=== PATIENT | female | born 1975 | race Caucasian/White ===

== ENCOUNTER 2016-06-04 16:06 | Emergency (ER) | payer OTHER ==
[2016-06-04 16:15] VITALS: BP 149/92; PULSE 93; TEMP 97.3; BMI 43.0
--- NOTE | 2016-06-04 16:17 | PDOC ---
History of Present Illness - General History Source: Patient Exam Limitations: No Limitations - History of Present Illness Initial Comments: 06/04/16 17:08 The patient is a 40 year old female, well known to this ER, with a significant past medical history of asthma, GERD, anxiety, depression, and chronic pain ( narcotic dependent), who presents to the emergency department s/p mechanical pain, occurring today. She reports her legs gave out falling on concrete. She reports falling on her right wrist. Patient reports as a result of the fall sustaining injuries to her right wrist and right shoulder. She reports falling a second time on her carpet resulting in lower back pain. She reports having numbness and tingling in LE. She also notes having shooting pains down her legs. She ranks her pain a 8/10 in pain intensity.She denies fever, chills, headache and dizziness. She denies nausea, vomit, diarrhea and constipation. Allergies: As per Nursing Notes. Social history: Narcotic dependency. Former smoker. <Marcio Spears - Last Filed: 06/04/16 19:04> <Manuel Santamaria - Last Filed: 06/04/16 19:09> - General Chief Complaint: Injury Stated Complaint: RT WRIST,ARM, LOWER BACK FALL Time Seen by Provider: 06/04/16 16:16 Past History <Marcio Spears - Last Filed: 06/04/16 19:04> - Past Medical History Anemia: No Asthma: Yes Cancer: No Cardiac Disorders: No CVA: No COPD: No CHF: No Dementia: No Diabetes: No GI Disorders: Yes (GERD) Disorders: No HTN: No Hypercholesterolemia: No Liver Disease: No Psychiatric Problems: Yes (ANXIETY, DEPRESSION) Suicide Attempt (Hx): No Seizures: No Thyroid Disease: No - Surgical History Abdominal Surgery: No Appendectomy: No Cardiac Surgery: No Cholecystectomy: No Lung Surgery: Yes (biopsy, negative pathology) Neurologic Surgery: No Orthopedic Surgery: Yes (spinal surgery x 9) - Immunization History Td Vaccination: Yes Immunization Up to Date: Yes - Psycho/Social/Smoking Cessation Hx Anxiety: Yes Suicidal Ideation: No Smoking Status: No Smoking History: Former smoker Have you smoked in the past 12 months: No Number of Cigarettes Smoked Daily: 0 If you are a former smoker, when did you quit?: > 10 YEARS Information on smoking cessation initiated: No Hx Alcohol Use: No Drug/Substance Use Hx: No Substance Use Type: None, Prescribed Hx Substance Use Treatment: No (benzodiazpene, narcotic) <Manuel Santamaria - Last Filed: 06/04/16 19:09> - Past Medical History Allergies/Adverse Reactions: Allergies Allergy/AdvReac Type Severity Reaction Status Date / Time morphine Allergy Severe Hives Verified 06/04/16 16:08 aspirin Allergy Unknown Hives Verified 06/04/16 16:08 ketorolac tromethamine Allergy Unknown Difficulty Verified 06/04/16 16:08 [From Toradol] Breathing NSAIDS (Non-Steroidal Allergy Hives Verified 06/04/16 16:08 Anti-Inflamma haloperidol [From Haldol] AdvReac Intermediate Verified 06/04/16 16:08 haloperidol lactate AdvReac Intermediate Verified 06/04/16 16:08 [From Haldol] STRAWBERRIES Allergy Mild Hives Uncoded 06/04/16 16:08 Home Medications: Ambulatory Orders Alprazolam [Xanax] 1 mg PO TID 02/26/14 Zolpidem Tartrate [Ambien] 10 mg PO HS 02/26/14 Carisoprodol [Soma -] 350 mg PO TID #21 tablet 09/05/14 Hydromorphone [Dilaudid -] 4 mg PO Q4H #12 tablet 07/14/15 Methadone HCl 20 mg PO BID tablet 11/08/15 Review of Systems - Review of Systems Able to Perform ROS?: Yes Constitutional: No: Symptoms Reported HEENTM: No: Symptoms Reported Respiratory: No: Symptoms reported Cardiac (ROS): No: Symptoms Reported ABD/GI: No: Symptoms Reported : No: Symptoms Reported Musculoskeletal: Yes: Back Pain (lower.), Joint Pain (right wirst.) Integumentary: No: Symptoms Reported Neurological: No: Symptoms reported All Other Systems: Reviewed and Negative <Marcio Spears - Last Filed: 06/04/16 19:04> *Physical Exam - Vital Signs Last Vital Signs Temp Pulse Resp BP Pulse Ox 97.3 F L 93 H 19 149/92 99 06/04/16 16:08 06/04/16 16:08 06/04/16 16:08 06/04/16 16:08 06/04/16 16:08 - Physical Exam General Appearance: Yes: Appropriately Dressed HEENT: positive: EOMI, FREDIS, Normal ENT Inspection, Normal Voice, TMs Normal, Pharynx Normal Neck: positive: Supple Respiratory/Chest: positive: Lungs Clear, Normal Breath Sounds Cardiovascular: positive: Regular Rhythm, Regular Rate Gastrointestinal/Abdominal: positive: Normal Bowel Sounds, Flat, Soft. 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 She reports falling on concrete on her right wrist and then falling again on her buttock. Denies head trauma or LOC. I will check x-rays to check for fractures in her wrist. <Marcio Spears - Last Filed: 06/04/16 19:04> *DC/Admit/Observation/Transfer - Attestations Scribe Attestion: 06/04/16 16:35 Documentation prepared by Marcio Spears, acting as medical assistant instructor for Manuel Santamaria MD. <Marcio Spears - Last Filed: 06/04/16 19:04> - Discharge Dispostion Admit: No <Manuel Santamaria - Last Filed: 06/04/16 19:09> Diagnosis at time of Disposition: Contusion, Exacerbation of chronic back pain Contusion of right shoulder Qualifiers: Encounter type: initial encounter Qualified Code(s): S40.011A - Contusion of right shoulder, initial encounter - Discharge Dispostion Disposition: HOME Condition at time of disposition: Improved - Patient Instructions Printed Discharge Instructions: DI for Rib Contusion, DI for Contusion
[2016-06-04] MEDS ORDERED: HYDROmorphone HCL CARPU-JECT 2 MG/1 ML DISP.SYRIN IM ONE (17:10)
[2016-06-04] MEDS ORDERED: HYDROmorphone HCL CARPU-JECT 2 MG/1 ML DISP.SYRIN ONE ×2 (17:12→18:56)
[2016-06-04] MEDS ORDERED: HYDROmorphone HCL CARPU-JECT 2 MG/1 ML DISP.SYRIN IVPUSH ONE (19:01)
[2016-06-04] MEDS ORDERED: CYCLOBENZAPRINE HCL 10 MG TABLET (FP) PO ONE (19:04)
[2016-06-04] MEDS ORDERED: CYCLOBENZAPRINE HCL 10 MG TABLET (FP) ONE (19:05)
== END 2016-06-04 19:17 | disposition home or self-care (01) ==
LOC: FER 16:06
PROC: 3E033NZ Introduction of Analgesics, Hypnotics, Sedatives into Peripheral Vein, Percutaneous Approach (ICD-10-PCS; principal; 2016-06-04)
PROC: 3E023NZ Introduction of Analgesics, Hypnotics, Sedatives into Muscle, Percutaneous Approach (ICD-10-PCS; 2016-06-04)
DX: S40.011A Contusion of right shoulder, initial encounter (principal); W18.39XA Other fall on same level, initial encounter; Y93.89 Activity, other specified; Y92.9 Unspecified place or not applicable; J45.909 Unspecified asthma, uncomplicated; K21.9 Gastro-esophageal reflux disease without esophagitis; F41.8 Other specified anxiety disorders; Z87.891 Personal history of nicotine dependence
CPT/HCPCS: 71101-TC-RT; 73030-TC-RT; 73090-TC-RT; 99284-25

== ENCOUNTER 2016-06-25 23:55 | Observation (INO) | payer OTHER ==
--- NOTE | 2016-06-26 00:02 | PDOC ---
History of Present Illness - General Chief Complaint: Chronic pain Stated Complaint: BACK PAIN/SPASMS Time Seen by Provider: 06/26/16 00:01 History Source: Patient Exam Limitations: No Limitations - History of Present Illness Initial Comments: 06/26/16 00:23 This is a morbidly obese 40-year-old female was long history of the chronic back pain and low back pain problems. Patient has multiple visits to the ER for her legs giving out and falls that she says is secondary to the pain. Patient is on multiple narcotic pain medications and is dependent upon her narcotic pain medications. Patient takes Dilaudid and methadone. Patient took her methadone and Dilaudid as prescribed today. Patient said that this afternoon she had several episodes where her legs gave out and the last time she was unable to get up off the floor and her father who she lives with had to help her get off the floor and put her in a chair and brought her in to the ER in the back of his car. In addition to the leg weakness patient is also complaining of numbness and some loss of urinary continence. Patient is able to stand and bear weight and not to get in and out of the car. Patient on arrival in the emergency room was sobbing hysterically and described her pain as a 10 out of 10. Patient is also complaining of some numbness and tingling of her extremities however this is a chronic complaint for her that dates back on review of her chart several years. Patient said she has a cyst in her back that is being followed by MRI and that her last MRI was 3 months ago and she was told that it was okay. Patient last CT of her back was approximately 6 months ago that was normal. Patient also has a moderate anxiety and emotional issues that are chronic and ongoing. 'PAST MEDICAL HISTORY: no significant history PAST SURGICAL HISTORY: no significant history FAMILY HISTORY: no pertinant history SOCIAL HISTORY: Pt lives with family and is employed. MEDICATIONS: reviewed ALLERGIES: As per nursing notes Review of Systems General: No fevers or chills, no weakness, no weight loss HEENT: No change in vision. No sore throat,. No ear pain CardioVascular: No chest pain or shortness of breath Respiratory:No cough, or wheezing. Gastrointestinal: no nausea, vomitting, diarrhea or constipation, No rectal bleeding Genitourinary: No dysuria, hematuria, or frequency Musculoskeletal: Chronic low back pain Neurologic: No headache, vertigo, dizziness or loss of consciousness Psychiatric: nor depression Skin: No rashes or easy bruising Endocrine: no increased thirst or abnormal weight change Allergic: no skin or latex allergy All other systems reviewed and normal GENERAL: The patient is awake, alert, and fully oriented, in no acute distress. HEAD: Normal with no signs of trauma. EYES: Pupils equal, round and reactive to light, extraocular movements intact, sclera anicteric, conjunctiva clear. EXTREMITIES: Normal range of motion, no edema. NEUROLOGICAL: Normal speech, gait not tested secondary to pain. Patient reports decreased sensation to lower extremities bilateral. Patient has weakness on testing the weakness is not reliable and when patient is distracted in her lower extremities do appear to have more strength than when she is focused on the exam. Patient has not had any urinary incontinence while here in the emergency room. PSYCH: Intermittent episodes of crying. SKIN: Warm, Dry, normal turgor, no rashes or lesions noted. 06/26/16 01:58 CT scan shows fusion of L4-S1 with no acute bony pathology. However it is recommended that to evaluate the disks the canal and nerve root disease for postoperative changes such as scarring that they will be better assessed with MRI. Patient will be admitted to a observation bed for her leg weakness and will get a MRI in the morning to evaluate further the possible cause of her weakness. Past History - Past Medical History Allergies/Adverse Reactions: Allergies Allergy/AdvReac Type Severity Reaction Status Date / Time morphine Allergy Severe Hives Verified 06/04/16 16:08 aspirin Allergy Unknown Hives Verified 06/04/16 16:08 ketorolac tromethamine Allergy Unknown Difficulty Verified 06/04/16 16:08 [From Toradol] Breathing NSAIDS (Non-Steroidal Allergy Hives Verified 06/04/16 16:08 Anti-Inflamma haloperidol [From Haldol] AdvReac Intermediate Verified 06/04/16 16:08 haloperidol lactate AdvReac Intermediate Verified 06/04/16 16:08 [From Haldol] STRAWBERRIES Allergy Mild Hives Uncoded 06/04/16 16:08 aspirin Allergy Unknown Uncoded 01/08/12 16:42 ketorolac tromethamine Allergy Unknown Uncoded 01/08/12 16:42 Home Medications: Ambulatory Orders Alprazolam [Xanax] 1 mg PO TID 02/26/14 Zolpidem Tartrate [Ambien] 10 mg PO HS 02/26/14 Carisoprodol [Soma -] 350 mg PO TID #21 tablet 09/05/14 Hydromorphone [Dilaudid -] 4 mg PO Q4H #12 tablet 07/14/15 Methadone HCl 20 mg PO BID tablet 11/08/15 Anemia: No Asthma: Yes Cancer: No Cardiac Disorders: No CVA: No COPD: No CHF: No Dementia: No Diabetes: No GI Disorders: Yes (GERD) Disorders: No HTN: No Hypercholesterolemia: No Liver Disease: No Psychiatric Problems: Yes (ANXIETY, DEPRESSION) Suicide Attempt (Hx): No Seizures: No Thyroid Disease: No - Surgical History Abdominal Surgery: No Appendectomy: No Cardiac Surgery: No Cholecystectomy: No Lung Surgery: Yes (biopsy, negative pathology) Neurologic Surgery: No Orthopedic Surgery: Yes (spinal surgery x 9) - Immunization History Td Vaccination: Yes Immunization Up to Date: Yes - Psycho/Social/Smoking Cessation Hx Anxiety: Yes Suicidal Ideation: No Smoking Status: No Smoking History: Former smoker Have you smoked in the past 12 months: No Number of Cigarettes Smoked Daily: 0 If you are a former smoker, when did you quit?: > 10 YEARS Hx Alcohol Use: No Drug/Substance Use Hx: No Substance Use Type: None, Prescribed Hx Substance Use Treatment: No (benzodiazpene, narcotic) *DC/Admit/Observation/Transfer Diagnosis at time of Disposition: Weakness of both lower extremities Lower back pain Qualifiers: Chronicity: chronic Back pain laterality: bilateral Sciatica presence: with sciatica Sciatica laterality: sciatica laterality unspecified Qualified Code(s) : M54.40 - Lumbago with sciatica, unspecified side; G89.29 - Other chronic pain Fall at home Qualifiers: Encounter type: initial encounter Qualified Code(s): W19.XXXA - Unspecified fall, initial encounter; Y92.099 - Unspecified place in other non-institutional residence as the place of occurrence of the external cause Opiate addiction Qualifiers: Substance use status: uncomplicated Qualified Code(s): F11.20 - Opioid dependence, uncomplicated - Discharge Dispostion Condition at time of disposition: Stable Admit: Yes
[2016-06-26] MEDS ORDERED: ACETAMINOPHEN 1000 MG/100 ML VIAL (NON FORMULARY) IVPB ONE (00:17)
[2016-06-26] MEDS ORDERED: methylPREDNISolone NA SUCC 125 MG/2 ML VIAL IVPB ONE (00:18)
[2016-06-26] MEDS ORDERED: methylPREDNISolone NA SUCC 125 MG/2 ML VIAL ONE (00:31)
[2016-06-26] MEDS ORDERED: ACETAMINOPHEN INJECTION 100 ML IVPB ONE (00:32)
[2016-06-26] MEDS ORDERED: HYDROmorphone HCL CARPU-JECT 1 MG/1 ML DISP.SYRIN IM ONE ×2 (00:47→03:09)
[2016-06-26] MEDS ORDERED: HYDROmorphone HCL CARPU-JECT 2 MG/1 ML DISP.SYRIN ONE ×2 (00:48→03:09)
[2016-06-26] MEDS ORDERED: ALPRAZolam 0.25 MG TABLET PO PRN (03:01)
[2016-06-26] MEDS ORDERED: DULoxetine HCL 30 MG CAPSULE.DR (FP) PO ONE (03:01)
[2016-06-26] MEDS ORDERED: PANTOPRAZOLE 40 MG TABLET (FP) PO ONE (03:01)
[2016-06-26] MEDS ORDERED: ALBUTEROL SO4 0.083% IH SOL 2.5 MG/3 ML VIAL.NEB. NEB PRN (03:01)
[2016-06-26] MEDS ORDERED: ACETAMINOPHEN 325 MG TABLET (FP) PO PRN (04:59)
[2016-06-26] MEDS ORDERED: METHADONE HCL 10 MG TABLET PO ONE (05:02)
[2016-06-26 05:49] VITALS: BP 139/81; PULSE 95; TEMP 98.9; BMI 44.6
--- NOTE | 2016-06-26 07:17 | HP ---
CHIEF COMPLAINT: Back pain and lower extremity weakness PCP: Dr Monzon Pain Management: Dr Garcia HISTORY OF PRESENT ILLNESS: Patient is a 40 y/o obese female with a past history of chronic lower back pain, GERD, anxiety and depression. She reports 10 back surgeries in the past ( cervical disc fusions, lumbar disc fusions and lumbar fusion). patient reports taking multiple narcotic pain medication (methadone, Dilaudid) for her chronic back pain. She reports taking her usual dosage of methadone and Dilaudid today. She reports ambulating independently at home and felt as if her legs were giving out on her and fell to the floor. She denies striking her head she can remember the full incident in detail. Patient reports her father assisted her to a chair. She reports ongoing weakness to the lower extremities , with urinary incontinence. Patient denies any saddle anesthesia. patient reports severe lower back pain radiating to bilateral lower extremities, she reports her pain is a stabbing pain of 10/10. ER course was notable for: (1) ct of lumbar spine no acute bony abnormalities no evidence of compression deformities and spondylolitshesis, no interval change since 03/04/2016 (2) dilaudid 6mg Im given for pain, with no relief Recent Travel: none Social History: resides at home with parents Smoking: none Alcohol: none Drugs: history of polysubstance abuse Family History: Allergies morphine Allergy (Severe, Verified 06/04/16 16:08) Hives aspirin Allergy (Unknown, Verified 06/04/16 16:08) Hives ketorolac tromethamine [From Toradol] Allergy (Unknown, Verified 06/04/16 16:08) Difficulty Breathing NSAIDS (Non-Steroidal Anti-Inflamma Allergy (Verified 06/04/16 16:08) Hives haloperidol [From Haldol] Adverse Reaction (Intermediate, Verified 06/04/16 16: 08) lock jaw haloperidol lactate [From Haldol] Adverse Reaction (Intermediate, Verified 06/04 16:08) lock jaw STRAWBERRIES Allergy (Mild, Uncoded 06/04/16 16:08) Hives STATES GETS HIVES aspirin Allergy (Unknown, Uncoded 01/08/12 16:42) ketorolac tromethamine Allergy (Unknown, Uncoded 01/08/12 16:42) HOME MEDICATIONS: Home Medications Medication Instructions Recorded Alprazolam [Xanax] 1 mg PO TID 02/26/14 Zolpidem Tartrate [Ambien] 10 mg PO HS 02/26/14 Carisoprodol [Soma -] 350 mg PO TID #21 tablet 09/05/14 Hydromorphone [Dilaudid -] 4 mg PO Q4H #12 tablet 07/14/15 Methadone HCl 20 mg PO BID tablet 11/08/15 Gabapentin [Neurontin] 300 mg PO TID 06/26/16 REVIEW OF SYSTEMS CONSTITUTIONAL: Absent: fever, chills, diaphoresis, generalized weakness, malaise, loss of appetite, weight change HEENT: Absent: rhinorrhea, nasal congestion, throat pain, throat swelling, difficulty swallowing, mouth swelling, ear pain, eye pain, visual changes CARDIOVASCULAR: Absent: chest pain, syncope, palpitations, irregular heart rate, lightheadedness , peripheral edema RESPIRATORY: Absent: cough, shortness of breath, dyspnea with exertion, orthopnea, wheezing, stridor, hemoptysis GASTROINTESTINAL: Absent: abdominal pain, abdominal distension, nausea, vomiting, diarrhea, constipation, melena, hematochezia GENITOURINARY: Absent: dysuria, frequency, urgency, hesitancy, hematuria, flank pain, genital pain MUSCULOSKELETAL: Present: lower back pain, paresthesia to the lower extremeties Absent: myalgia, arthralgia, joint swelling, back pain, neck pain SKIN: Absent: rash, itching, pallor HEMATOLOGIC/IMMUNOLOGIC: Absent: easy bleeding, easy bruising, lymphadenopathy, frequent infections ENDOCRINE: Absent: unexplained weight gain, unexplained weight loss, heat intolerance, cold intolerance NEUROLOGIC: Absent: headache, focal weakness or paresthesias, dizziness, unsteady gait, seizure, mental status changes, bladder or bowel incontinence PSYCHIATRIC: Absent: anxiety, depression, suicidal or homicidal ideation, hallucinations. PHYSICAL EXAMINATION Vital Signs - 24 hr 06/26/16 06/26/16 05:15 05:21 Temperature 99.0 F 98.9 F Pulse Rate 83 95 H Respiratory 20 18 Rate Blood Pressure 144/78 139/81 O2 Sat by Pulse 97 Oximetry (%) GENERAL: Awake, alert, and fully oriented, crying HEAD: Normal with no signs of trauma. EYES: Pupils equal, round and reactive to light, extraocular movements intact, sclera anicteric, conjunctiva clear. No lid lag. EARS, NOSE, THROAT: Ears normal, nares patent, oropharynx clear without exudates. Moist mucous membranes. NECK: Normal range of motion, supple without lymphadenopathy, JVD, or masses. LUNGS: Breath sounds equal, clear to auscultation bilaterally. No wheezes, and no crackles. No accessory muscle use. HEART: Regular rate and rhythm, normal S1 and S2 without murmur, rub or gallop. ABDOMEN: Soft, nontender, not distended, normoactive bowel sounds, no guarding, no rebound, no masses. No hepatomegaly or splenomegaly. MUSCULOSKELETAL: Normal range of motion at all joints. No bony deformities or tenderness. No CVA tenderness. paraspinal tenderness noted L4 and L5 with muscle spasm, positive SLR 45 and at 90 bilaterally UPPER EXTREMITIES: 2+ pulses, warm, well-perfused. No cyanosis. No clubbing. Cap refill <2 seconds. No peripheral edema. LOWER EXTREMITIES: 2+ pulses, warm, well-perfused. No calf tenderness. No peripheral edema. reports decreased sensation to bilateral lower extremities. NEUROLOGICAL: Cranial nerves II-XII intact. Normal speech. Normal gait. PSYCHIATRIC: Cooperative. Good eye contact. Appropriate mood and affect. SKIN: Warm, dry, normal turgor, no rashes or lesions noted. ASSESSMENT/PLAN: 1) MS: chronic lower back pain - ct scan of lumbar spine reviewed, pt reports ongoing weakness and incontinence , denies any saddle anesthesia patient does have a documented history of cauda equina in the past requiring emergent neurosurgical intervention. Will order MRI of lumbar spine - Patient's dilauded and methadone dosages confirmed with pain management physician Dr. Garcia and Vincent thapa, reference #[id number], will continue home dosages. - case discussed with patient's pain management physician Dr. Garcia, as per Dr. Garcia patient does have an established contract with pain management, patient is to receive refills only for pain medication on the first week of the month,her last refill for methadone, alprazolam, and dilaudid was 06/05/2016. As per I stop reference #[id number], patient received 30 days of methadone alprazolam and hydromorphone on 06/04/2016 2) GI GERD - continue Protonix 3)psych - Continue Cymbalta F/E/N - Regular diet - Replete phosphorus, patient has poor IV access declining IV access at this time will order Po kphos ppx - lovenox - protonix - scd - oob - pt dispo: requires observation, if MRI is negative, discharge home with strict follow up with pain managment physician Visit type - Emergency Visit Emergency Visit: Yes ED Registration Date: 06/26/16 Care time: The patient presented to the Emergency Department on the above date and was hospitalized for further evaluation of their emergent condition. - New Patient This patient is new to me today: Yes Date on this admission: 06/26/16 - Critical Care Critical Care patient: No
[2016-06-26 08:43] LABS: BASOPHIL 0.7 % (0-2.0); EOSINOPHIL 0.1 % (0-4.5); MCH 26.6 pg (25.7-33.7); MEAN CELL VOLUME 80.6 fl (80-96); MEAN PLT VOLUME 8.7 fl (7.5-11.1); NEUTROPHILS 89.9 % (42.8-82.8); PLATELET COUNT 277 K/MM3 (134-434); RDW 14.5 % (11.6-15.6); WHITE BLOOD COUNT 7.9 K/mm3 (4.0-10.0)
[2016-06-26 09:00] LABS: ALBUMIN 3.8 g/dl (3.5-5.0); ALK PHOS 102 U/L (32-92); ANION GAP 9 (8-16); CALCIUM 9.6 mg/dl (8.4-10.2); CO2 28 mmol/L (22-28); CREATININE 0.7 mg/dl (0.6-1.3); GLUCOSE,RANDOM 192 mg/dl (74-106); MAGNESIUM 1.8 mg/dL (1.8-2.4); PHOSPHOROUS 1.9 mg/dl (2.5-4.6); SGOT/AST 23 U/L (10-42); SGPT/ALT 20 U/L (10-40); TOT PROT 7.4 g/dl (6.4-8.3)
[2016-06-26] MEDS ORDERED: diazePAM 5 MG TABLET PO PRN (09:22)
[2016-06-26 09:49] LABS: BILIRUBIN,TOTAL 0.2 mg/dl (0.2-1.0)
[2016-06-26] MEDS ORDERED: DULoxetine HCL 30 MG CAPSULE.DR (FP) PO SCH (10:15)
[2016-06-26] MEDS ORDERED: POTASSIUM PHOSPHATE 21 MM in SODIUM CHLORIDE 250 ML IVPB ONE (10:30)
[2016-06-26] MEDS ORDERED: METHADONE HCL 10 MG TABLET PO SCH (10:30)
[2016-06-26] MEDS ORDERED: INFLUENZA VACCINE 45 MCG/0.5 ML (MDV 16-17) IM ONE (11:00)
[2016-06-26] MEDS ORDERED: NAPH,MB-DB/K PH,MBDB POWDER PACKET PO SCH (11:15)
[2016-06-26] MEDS ORDERED: diazePAM CARPU-JECT 10 MG/2 ML DISP.SYRIN IVPUSH ONE (11:57)
--- NOTE | 2016-06-26 12:12 | EKG ---
Test Reason : Blood Pressure : / mmHG Vent. Rate : 101 BPM Atrial Rate : 101 BPM P-R Int : 170 ms QRS Dur : 088 ms QT Int : 360 ms P-R-T Axes : 054 026 044 degrees QTc Int : 466 ms SINUS TACHYCARDIA WHEN COMPARED WITH ECG OF 29-JUN-2014 22:17, NO SIGNIFICANT CHANGE WAS FOUND Confirmed by EDWARDO DAVEY MD ([id number]) on 06/26/2016 12:11:47 PM Referred By: MURRAY NORTON Confirmed By:EDWARDO DAVEY MD
[2016-06-26] MEDS ORDERED: GABAPENTIN 300 MG CAPSULE (FP) PO SCH (14:00)
[2016-06-26] MEDS ORDERED: ZOLPIDEM TARTRATE 5 MG TABLET PO PRN (22:00)
[2016-06-27] MEDS ORDERED: ENOXAPARIN NA (PORCINE) 40 MG/0.4 ML DISP.SYRIN SQ SCH (10:00)
== END 2016-06-26 13:55 | disposition home or self-care (01) ==
LOC: FER 23:55 → FM/S 06-26 03:00
PROVIDERS: ADMIT Internal Medicine; ATTEND Internal Medicine
DX: M54.42 Lumbago with sciatica, left side (principal); K21.9 Gastro-esophageal reflux disease without esophagitis; M54.41 Lumbago with sciatica, right side; F41.8 Other specified anxiety disorders; J45.909 Unspecified asthma, uncomplicated; F11.20 Opioid dependence, uncomplicated; Z87.891 Personal history of nicotine dependence
CPT/HCPCS: 36415; 72131-TC; 80053; 83735; 84100; 85025; 93005; 97116-GP; 97161-GP; 99282-25; G0378

== ENCOUNTER 2016-08-23 21:18 | Emergency (ER) | payer OTHER ==
[2016-08-23] MEDS ORDERED: HYDROmorphone HCL 2 MG TABLET PO ONE (21:28)
--- NOTE | 2016-08-23 21:33 | PDOC ---
History of Present Illness - General History Source: Patient Exam Limitations: No Limitations - History of Present Illness Initial Comments: 08/23/16 21:36 The patient is a 40 year old female with a significant past medical history of Chronic low back pain. Frequent ED visits. Presents with typical symptoms: Back pain spasm and lower extremity numbness. No fever or chills. No direct trauma. No history of coagulopathy or bleeding tendencies. Pain is severe, located throughout her lower back, with radiation to both lower extremities. No relief with her usual prescription medication. Followed by Dr. Monzon. She reports calling his office but the doctor was not available. Family history: Noncontributory Review of systems: Reviewed and otherwise negative <Leander Saini - Last Filed: 08/23/16 21:36> <Trae Diaz - Last Filed: 08/24/16 05:49> - General Chief Complaint: Pain, Acute Stated Complaint: NECK/BACK PAIN Time Seen by Provider: 08/23/16 21:27 Past History <Leander Saini - Last Filed: 08/23/16 21:36> - Past Medical History Anemia: No Asthma: Yes Cancer: No Cardiac Disorders: No CVA: No COPD: No CHF: No Dementia: No Diabetes: No GI Disorders: Yes (GERD) Disorders: No HTN: No Hypercholesterolemia: No Liver Disease: No Psychiatric Problems: Yes (ANXIETY, DEPRESSION) Suicide Attempt (Hx): No Seizures: No Thyroid Disease: No - Surgical History Abdominal Surgery: No Appendectomy: No Cardiac Surgery: No Cholecystectomy: No Lung Surgery: Yes (biopsy, negative pathology) Neurologic Surgery: No Orthopedic Surgery: Yes (spinal surgery x 9) - Immunization History Td Vaccination: Yes Immunization Up to Date: Yes - Psycho/Social/Smoking Cessation Hx Anxiety: Yes Suicidal Ideation: No Smoking Status: No Smoking History: Former smoker Have you smoked in the past 12 months: No Number of Cigarettes Smoked Daily: 0 If you are a former smoker, when did you quit?: > 10 YEARS Hx Alcohol Use: No Drug/Substance Use Hx: No Substance Use Type: None, Prescribed Hx Substance Use Treatment: No (benzodiazpene, narcotic) <Trae Diaz - Last Filed: 08/24/16 05:49> - Past Medical History Allergies/Adverse Reactions: Allergies Allergy/AdvReac Type Severity Reaction Status Date / Time morphine Allergy Severe Hives Verified 08/23/16 21:21 aspirin Allergy Unknown Hives Verified 08/23/16 21:21 ketorolac tromethamine Allergy Unknown Difficulty Verified 08/23/16 21:21 [From Toradol] Breathing NSAIDS (Non-Steroidal Allergy Hives Verified 08/23/16 21:21 Anti-Inflamma haloperidol [From Haldol] AdvReac Intermediate Verified 08/23/16 21:21 haloperidol lactate AdvReac Intermediate Verified 08/23/16 21:21 [From Haldol] STRAWBERRIES Allergy Mild Hives Uncoded 06/04/16 16:08 aspirin Allergy Unknown Uncoded 01/08/12 16:42 ketorolac tromethamine Allergy Unknown Uncoded 01/08/12 16:42 Home Medications: Ambulatory Orders Acetaminophen [Tylenol .Regular Strength -] 650 mg PO Q6H PRN #0 tablet Gabapentin [Neurontin] 300 mg PO TID 06/26/16 Prednisone [Deltasone -] 5 mg PO ASDIR #32 tab 06/26/16 Review of Systems - Review of Systems Able to Perform ROS?: Yes Comments:: 08/23/16 21:36 Reviewed and otherwise negative <Leander Saini - Last Filed: 08/23/16 21:36> *Physical Exam - Vital Signs Last Vital Signs Temp Pulse Resp BP Pulse Ox 98.5 F 92 H 18 130/81 99 08/23/16 21:29 08/23/16 21:29 08/23/16 21:29 08/23/16 21:29 08/23/16 21:29 - Physical Exam Comments: 08/23/16 21:37 Physical exam:GENERAL: [The patient is awake, alert, and fully oriented, and in no apparent distress.] HEAD: [Normal with no signs of trauma.] EYES: [ extraocular movements intact, sclera anicteric, conjunctiva are normal.] ENT: [ nares patent, oropharynx clear without exudates. Moist mucous membranes.] NECK: [Normal range of motion, supple without lymphadenopathy, JVD, or masses.] LUNGS: [Breath sounds equal, clear to auscultation bilaterally. No wheezes, and no crackles.] HEART: [Regular rate and rhythm, normal S1 and S2 without murmur, rub or gallop.] ABDOMEN: [Soft, nontender, normoactive bowel sounds. No guarding, no rebound. No masses appreciated.] EXTREMITIES: [Normal range of motion, no edema. No clubbing or cyanosis. No cords, erythema, or tenderness.] NEUROLOGICAL: [Normal strength throughout 4 extremities. Sensation decreased but intact to light touch in bilateral lower extremities.] PSYCH: [Normal mood, normal affect.] SKIN: [Warm, Dry, normal turgor, no rashes or lesions noted.] <Leander Saini - Last Filed: 08/23/16 21:36> Medical Decision Making - Medical Decision Making 08/24/16 05:49 chronic back pain analgesia complementary therapies encouraged <Trae Diaz - Last Filed: 08/24/16 05:49> *DC/Admit/Observation/Transfer - Attestations Scribe Attestion: 08/23/16 21:41 Documentation prepared by Leander Saini, acting as medical radiation therapist for Trae Diaz MD. 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
[2016-08-23 21:34] VITALS: BP 130/81; PULSE 92; TEMP 98.5; BMI 43.0
== END 2016-08-23 21:59 | disposition home or self-care (01) ==
LOC: FER 21:18
DX: M96.1 Postlaminectomy syndrome, not elsewhere classified (principal); G89.29 Other chronic pain; J45.909 Unspecified asthma, uncomplicated; K21.9 Gastro-esophageal reflux disease without esophagitis; F41.8 Other specified anxiety disorders; Z87.891 Personal history of nicotine dependence
CPT/HCPCS: 99281-25

== ENCOUNTER 2016-09-23 00:51 | Emergency (ER) | payer OTHER ==
[2016-09-23] MEDS ORDERED: HYDROmorphone HCL CARPU-JECT 1 MG/1 ML DISP.SYRIN IM ONE (01:02)
--- NOTE | 2016-09-23 01:13 | PDOC ---
History of Present Illness - General Chief Complaint: Back Pain Stated Complaint: BACK PAIN RADIATING DOWN BOTH LEGS Time Seen by Provider: 09/23/16 01:02 - History of Present Illness Initial Comments: 09/23/16 01:07 This 40-year-old woman with a long history of chronic back pain, s/p posterior lumbar fusion procedure with persistent pain and frequent ER visits for analgesia presents with history of epidural injection(patient was told medication was "a pain shayy") for analgesia performed approximately 8 hours prior to presentation emergency room. Patient states that she had profuse sweating during the procedure and has had persistent pain in the area of the injection since then. She also has her usual bilateral posterior leg pain and numbness, somewhat worse than usual since the injection. Patient states that her pain management doctor (Dr.Bryan Gilliland) had explained that she might have worsening of her symptoms from this procedure and that there was a "50-50" chance that it would be effective for pain relief. The patient takes [id number] Dilaudid 4 mg (4 times a day) by mouth for her pain and her last dose was 9 PM. She noted no relief of her symptoms after this dose. Patient also has noted increase in her usual anxiety with her persistent pain this evening. Patient takes Xanax 1 mg 3 times a day around-the -clock for her anxiety. Last dose was 9 PM. Past History - Past Medical History Allergies/Adverse Reactions: Allergies Allergy/AdvReac Type Severity Reaction Status Date / Time morphine Allergy Severe Hives Verified 09/23/16 00:53 aspirin Allergy Unknown Hives Verified 09/23/16 00:53 ketorolac tromethamine Allergy Unknown Difficulty Verified 09/23/16 00:53 [From Toradol] Breathing NSAIDS (Non-Steroidal Allergy Hives Verified 09/23/16 00:53 Anti-Inflamma haloperidol [From Haldol] AdvReac Intermediate Verified 09/23/16 00:53 haloperidol lactate AdvReac Intermediate Verified 09/23/16 00:53 [From Haldol] STRAWBERRIES Allergy Mild Hives Uncoded 06/04/16 16:08 aspirin Allergy Unknown Uncoded 01/08/12 16:42 ketorolac tromethamine Allergy Unknown Uncoded 01/08/12 16:42 Home Medications: Ambulatory Orders Acetaminophen [Tylenol .Regular Strength -] 650 mg PO Q6H PRN #0 tablet Gabapentin [Neurontin] 300 mg PO TID 06/26/16 Prednisone [Deltasone -] 5 mg PO ASDIR #32 tab 06/26/16 Hydromorphone HCl [Dilaudid] 4 mg PO QID 09/23/16 Anemia: No Asthma: Yes Cancer: No Cardiac Disorders: No CVA: No COPD: No CHF: No Dementia: No Diabetes: No GI Disorders: Yes (GERD) Disorders: No HTN: No Hypercholesterolemia: No Liver Disease: No Psychiatric Problems: Yes (ANXIETY, DEPRESSION) Suicide Attempt (Hx): No Seizures: No Thyroid Disease: No - Surgical History Abdominal Surgery: No Appendectomy: No Cardiac Surgery: No Cholecystectomy: No Lung Surgery: Yes (biopsy, negative pathology) Neurologic Surgery: No Orthopedic Surgery: Yes (spinal surgery x 9) - Immunization History Td Vaccination: Yes Immunization Up to Date: Yes - Psycho/Social/Smoking Cessation Hx Anxiety: Yes Suicidal Ideation: No Smoking Status: No Smoking History: Former smoker Have you smoked in the past 12 months: No Number of Cigarettes Smoked Daily: 0 If you are a former smoker, when did you quit?: > 10 YEARS Hx Alcohol Use: No Drug/Substance Use Hx: No Substance Use Type: None, Prescribed Hx Substance Use Treatment: No (benzodiazpene, narcotic) Trauma Specific PMHX - Complaint Specific PMHX Back Injury: Yes Neck Injury: Yes Review of Systems - Review of Systems Able to Perform ROS?: Yes Comments:: 12 point review of systems is negative except for what is noted in the history of present illness *Physical Exam - Physical Exam Comments: GENERAL:Adult female, alert and oriented 3, in moderate distress secondary to lower back/bilateral lower extremity pain; tearful HEAD: Normal with no signs of trauma. EYES: PERRLA, EOMI, sclera anicteric, conjunctiva clear. ENT: Ears normal, nares patent, oropharynx clear without exudates. Dry mucous membranes. NECK: Normal range of motion, supple without lymphadenopathy, JVD, or masses. No meningismus LUNGS: Breath sounds equal, clear to auscultation bilaterally. No wheezes, and no crackles. HEART:Regular rate and rhythm, normal S1 and S2 without murmur, rub or gallop. ABDOMEN:.normal bowel sounds No guarding,tenderness or rebound.No masses No distention. EXTREMITIES: Straight leg raising pain bilaterally at 10 NEUROLOGICAL: Cranial nerves II through XII grossly intact. Normal speech. No focal neurological deficits. Site of the epidural injection without hematoma/ increased warmth/erythema SKIN: Warm, Dry, normal turgor, no rashes or lesions noted. Progress Note - Progress Note Progress Note: 40-year-old woman with history of chronic lower back pain and long history of drug-seeking behavior presents with history of worsening symptoms several hours after epidural injection. No history of headache/stiff neck/bowel or bladder incontinence. She has no new weakness of her lower extremities. She has had no fever or chills. Exam shows no evidence of inflammation/hematoma at the site of the epidural injection Patient received 1 mg of Dilaudid IM for exacerbation of her chronic back pain/ lower extremity pain after epidural injection earlier today. Patient had some relief of her pain after Dilaudid but stated that her anxiety was still severe. She was given 0.5 milligrams Xanax by mouth Medical Decision Making - Medical Decision Making 09/23/16 01:59 Patient is significantly less pain and anxiety after medications. Patient will be discharged with instructions to contact her pain management doctor in the morning and follow-up as scheduled. She will continue her medications as previously prescribed. She should return to the emergency room if she has worsening pain or develops fever/severe headache/stiff neck/lower extremity weakness *DC/Admit/Observation/Transfer Diagnosis at time of Disposition: Anxiety attack Chronic back pain Qualifiers: Back pain location: low back pain Back pain laterality: bilateral Sciatica presence: with sciatica Sciatica laterality: bilateral sciatica Qualified Code(s ): M54.42 - Lumbago with sciatica, left side - Discharge Dispostion Disposition: HOME Condition at time of disposition: Stable - Referrals Referrals: Marcio Monzon MD [Primary Care Provider] - Joce Gilliland MD [Staff Physician] - Call tomorrow - Patient Instructions Printed Discharge Instructions: Managing Chronic Low Back Pain Additional Instructions: Call in the morning and follow-up as scheduled Continue other medications as prescribed Return to ER if you have fever/chills, severe headache/stiff neck or pain/ swelling around the injection site
[2016-09-23 01:25] VITALS: BP 141/91; PULSE 112; TEMP 98.1; BMI 43.8
[2016-09-23] MEDS ORDERED: ALPRAZolam 2 MG TABLET PO ONE (01:34)
[2016-09-23] MEDS ORDERED: ALPRAZolam 0.25 MG TABLET ONE (01:35)
== END 2016-09-23 02:09 | disposition home or self-care (01) ==
LOC: FER 00:51
PROC: 3E023NZ Introduction of Analgesics, Hypnotics, Sedatives into Muscle, Percutaneous Approach (ICD-10-PCS; principal; 2016-09-23)
DX: F41.0 Panic disorder [episodic paroxysmal anxiety] (principal); M54.42 Lumbago with sciatica, left side; G89.29 Other chronic pain; J45.909 Unspecified asthma, uncomplicated; K21.9 Gastro-esophageal reflux disease without esophagitis; F32.9 Major depressive disorder, single episode, unspecified; Z87.891 Personal history of nicotine dependence
CPT/HCPCS: 96372; 99281-25

== ENCOUNTER 2016-12-15 22:23 | Emergency (ER) | payer OTHER ==
[2016-12-15 22:40] VITALS: BP 127/84; PULSE 105; TEMP 98.4; BMI 46.2
[2016-12-15] MEDS ORDERED: METHADONE HCL 10 MG TABLET PO STA (22:52)
--- NOTE | 2016-12-15 22:52 | PDOC ---
History of Present Illness - General Chief Complaint: Pain, Acute Stated Complaint: RAN OUT OF DILAUDID /METHADONE Time Seen by Provider: 12/15/16 22:29 History Source: Patient Exam Limitations: No Limitations - History of Present Illness Initial Comments: 12/15/16 23:03 This is a morbidly obese female with a long history of opioid addiction and chronic pain who comes in intermittently for acute exacerbation of her long- term chronic pain. Patient comes in this evening because she said she ran out of her methadone and Dilaudid and her doctor had an emergency room on his [facility] to refill her prescription. On review of her [facility] prescription history patient is not due to have her prescription refilled for 3 more days. 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 Patient said there is no new pain it just is acute exacerbation of her chronic pain as she was unable to take her medications this evening. PAST MEDICAL HISTORY: no significant history PAST SURGICAL HISTORY: no significant history FAMILY HISTORY: no pertinant history SOCIAL HISTORY: Pt lives with family and is employed. MEDICATIONS: reviewed ALLERGIES: As per nursing notes Review of Systems General: No fevers or chills, no weakness, no weight loss HEENT: No change in vision. No sore throat,. No ear pain CardioVascular: No chest pain or shortness of breath Respiratory:No cough, or wheezing. Gastrointestinal: no nausea, vomitting, diarrhea or constipation, No rectal bleeding Genitourinary: No dysuria, hematuria, or frequency Musculoskeletal: Back pain exacerbation as per history of present illness Neurologic: No headache, vertigo, dizziness or loss of consciousness Psychiatric: nor depression Skin: No rashes or easy bruising Endocrine: no increased thirst or abnormal weight change Allergic: no skin or latex allergy All other systems reviewed and normal GENERAL: The patient is awake, alert, and fully oriented, in no acute distress. HEAD: Normal with no signs of trauma. EYES: Pupils equal, round and reactive to light, extraocular movements intact, sclera anicteric, conjunctiva clear. EXTREMITIES: Normal range of motion, no edema. Back: Pain and spasm on palpation diffusely of back NEUROLOGICAL: Normal speech, antalgic gait PSYCH: Normal mood, normal affect. SKIN: Warm, Dry, normal turgor, no rashes or lesions noted. Assessment and plan: This is a 41-year-old female who says she ran out of her methadone and Dilaudid. I gave her 1 dose of methadone and Dilaudid here in the room and she was discharged. Patient was told to call her doctor in the morning and get her her prescription should renewed by her physician as I was unable to refill it for her here Past History - Past Medical History Allergies/Adverse Reactions: Allergies Allergy/AdvReac Type Severity Reaction Status Date / Time morphine Allergy Severe Hives Verified 12/15/16 22:35 aspirin Allergy Unknown Hives Verified 12/15/16 22:35 ketorolac tromethamine Allergy Unknown Difficulty Verified 12/15/16 22:35 [From Toradol] Breathing NSAIDS (Non-Steroidal Allergy Hives Verified 12/15/16 22:35 Anti-Inflamma haloperidol [From Haldol] AdvReac Intermediate Verified 12/15/16 22:35 haloperidol lactate AdvReac Intermediate Verified 12/15/16 22:35 [From Haldol] STRAWBERRIES Allergy Mild Hives Uncoded 06/04/16 16:08 aspirin Allergy Unknown Uncoded 01/08/12 16:42 ketorolac tromethamine Allergy Unknown Uncoded 01/08/12 16:42 Home Medications: Ambulatory Orders Acetaminophen [Tylenol .Regular Strength -] 650 mg PO Q6H PRN #0 tablet Gabapentin [Neurontin] 300 mg PO TID 06/26/16 Prednisone [Deltasone -] 5 mg PO ASDIR #32 tab 06/26/16 Hydromorphone HCl [Dilaudid] 4 mg PO QID 09/23/16 Anemia: No Asthma: Yes Cancer: No Cardiac Disorders: No CVA: No COPD: No CHF: No Dementia: No Diabetes: No GI Disorders: Yes (GERD) Disorders: No HTN: No Hypercholesterolemia: No Liver Disease: No Psychiatric Problems: Yes (ANXIETY, DEPRESSION) Suicide Attempt (Hx): No Seizures: No Thyroid Disease: No - Surgical History Abdominal Surgery: No Appendectomy: No Cardiac Surgery: No Cholecystectomy: No Lung Surgery: Yes (biopsy, negative pathology) Neurologic Surgery: No Orthopedic Surgery: Yes (spinal surgery x 9) - Immunization History Td Vaccination: Yes Immunization Up to Date: Yes - Psycho/Social/Smoking Cessation Hx Anxiety: Yes Suicidal Ideation: No Smoking Status: No Smoking History: Former smoker Have you smoked in the past 12 months: No Number of Cigarettes Smoked Daily: 0 If you are a former smoker, when did you quit?: > 10 YEARS Information on smoking cessation initiated: No Hx Alcohol Use: No Drug/Substance Use Hx: No Substance Use Type: None, Prescribed Hx Substance Use Treatment: No (benzodiazpene, narcotic) *Physical Exam - Vital Signs Last Vital Signs Temp Pulse Resp BP Pulse Ox 98.4 F 105 H 18 127/84 99 12/15/16 22:36 12/15/16 22:36 12/15/16 22:36 12/15/16 22:36 12/15/16 22:36 *DC/Admit/Observation/Transfer Diagnosis at time of Disposition: Pain - Discharge Dispostion Disposition: HOME Condition at time of disposition: Stable Admit: No - Patient Instructions Additional Instructions: Call your doctor in the morning that you get your prescriptions from for your pain and make sure you get your prescriptions filled tomorrow morning. Return to the emergency department immediately with ANY new, persistent or worsening symptoms. Continue any medications as previously prescribed by your physician. You should follow up with your primary doctor as soon as possible regarding today's emergency department visit. . Please make sure your doctor reviews the results of your emergency evaluation. Thank you for coming to the Emergency Department today for your care. It was a pleasure to see you today. Please note that your evaluation is INCOMPLETE until you follow-up with your doctor.
== END 2016-12-15 23:05 | disposition home or self-care (01) ==
LOC: FER 22:23
DX: G89.29 Other chronic pain (principal); J45.909 Unspecified asthma, uncomplicated; K21.9 Gastro-esophageal reflux disease without esophagitis; F41.8 Other specified anxiety disorders; Z87.891 Personal history of nicotine dependence
CPT/HCPCS: 99281-25

== ENCOUNTER 2017-02-07 00:05 | Emergency (ER) | payer OTHER ==
--- NOTE | 2017-02-07 00:18 | PDOC ---
History of Present Illness - General Chief Complaint: Pain Stated Complaint: PAIN Past History - Travel Traveled outside of the country in the last 30 days: No - Past Medical History Allergies/Adverse Reactions: Allergies Allergy/AdvReac Type Severity Reaction Status Date / Time morphine Allergy Severe Hives Verified 12/15/16 22:35 aspirin Allergy Unknown Hives Verified 12/15/16 22:35 ketorolac tromethamine Allergy Unknown Difficulty Verified 12/15/16 22:35 [From Toradol] Breathing NSAIDS (Non-Steroidal Allergy Hives Verified 12/15/16 22:35 Anti-Inflamma haloperidol [From Haldol] AdvReac Intermediate Verified 12/15/16 22:35 haloperidol lactate AdvReac Intermediate Verified 12/15/16 22:35 [From Haldol] STRAWBERRIES Allergy Mild Hives Uncoded 06/04/16 16:08 aspirin Allergy Unknown Uncoded 01/08/12 16:42 ketorolac tromethamine Allergy Unknown Uncoded 01/08/12 16:42 Home Medications: Ambulatory Orders Acetaminophen [Tylenol .Regular Strength -] 650 mg PO Q6H PRN #0 tablet Gabapentin [Neurontin] 300 mg PO TID 06/26/16 Hydromorphone HCl [Dilaudid] 4 mg PO Q4HWA 09/23/16 Alprazolam [Xanax] 1 mg PO TID 02/07/17 Baclofen 10 mg PO TID 02/07/17 Methadone [Dolophine -] 20 mg PO Q12H 02/07/17 Zolpidem Tartrate [Ambien] 10 mg PO HS 02/07/17 Anemia: No Asthma: Yes Cancer: No Cardiac Disorders: No CVA: No COPD: No CHF: No Dementia: No Diabetes: No GI Disorders: Yes (GERD) Disorders: No HTN: No Hypercholesterolemia: No Liver Disease: No Psychiatric Problems: Yes (ANXIETY, DEPRESSION) Seizures: No Thyroid Disease: No - Surgical History Abdominal Surgery: No Appendectomy: No Cardiac Surgery: No Cholecystectomy: No Lung Surgery: Yes (biopsy, negative pathology) Neurologic Surgery: No Orthopedic Surgery: Yes (spinal surgery x 9) - Immunization History Td Vaccination: Yes Immunization Up to Date: Yes - Suicide/Smoking/Psychosocial Hx Smoking Status: No Smoking History: Former smoker Have you smoked in the past 12 months: No Number of Cigarettes Smoked Daily: 0 If you are a former smoker, when did you quit?: > 10 YEARS Information on smoking cessation initiated: No Hx Alcohol Use: No Drug/Substance Use Hx: No Substance Use Type: None, Prescribed Hx Substance Use Treatment: No (benzodiazpene, narcotic) Review of Systems - Review of Systems Constitutional: No: Symptoms Reported, See HPI, Chills, Diaphoresis, Fever, Loss of Appetite, Malaise, Night Sweats, Weakness, Weight Stable, Unintentional Wgt. Loss, Unexplained wgt Loss, Other HEENTM: No: Symptoms Reported, See HPI, Eye Pain, Blurred Vision, Tearing, Recent change in vision, Double Vision, Cataracts, Ear Pain, Ocular Prothesis, Ear Discharge, Nose Pain, Nose Congestion, Tinnitus, Nose Bleeding, Hearing Loss , Throat Pain, Throat Swelling, Mouth Pain, Dental Problems, Difficulty Swallowing, Mouth Swelling, Other Respiratory: No: Symptoms reported, See HPI, Cough, Orthopnea, Shortness of Breath, SOB with Exertion, SOB at Rest, Stridor, Wheezing, Productive cough, Hemoptysis, Other Cardiac (ROS): No: Symptoms Reported, See HPI, Chest Pain, Edema, Irregular Heart Rate, Lightheadedness, Palpitations, Syncope, Chest Tightness, Other ABD/GI: No: Symptoms Reported, See HPI, Abdominal Distended, Abd. Pain w/ defecation, Blood Streaked Bowels, Constipated, Diarrhea, Difficulty Swallowing , Nausea, Poor Appetite, Poor Fluid Intake, Rectal Bleeding, Vomiting, Indigestion, Abdominal cramping, Tarry Stools, Other : No: Symptoms Reported, See HPI, Burning, Dysuria, Discharge, Frequency, Flank Pain, Hematuria, Incontinence, Pain, Urgency, Testicular Mass, Testicular Swelling, Lesions, Testicular Pain, Other Musculoskeletal: Yes: Muscle Pain, Muscle Weakness, Joint Stiffness Neurological: Yes: Headache, Paresthesia, Weakness, Other (back muscle spasms) Psychiatric: Yes: Anxiety, Depression, Emotional Problems. No: Frequent Crying , Stressors, Sleep Pattern Change, Mood Swings, Change in Appetite, Other Endocrine: No: Symptoms Reported, See HPI, Excessive Sweating, Flushing, Intolerance to Cold, Intolerance to Heat, Increased Hunger, Increased Thirst, Increased Urine, Unexplained Weight Gain, Unexplained Weight Loss, Change in Weight, Other Hematologic/Lymphatic: No: Symptoms Reported, See HPI, Anemia, Blood Clots, Easy Bleeding, Easy Bruising, Bleeding Diathesis, Lymph Node Abnormalities, Swollen Glands, Other *Physical Exam - Physical Exam General Appearance: Yes: Nourished, Appropriately Dressed, Other (pt in distress when we observe her. WHen we walk away from room she is calm) HEENT: positive: EOMI, FREDIS, Normal ENT Inspection, Normal Voice, Pharynx Normal Neck: positive: Trachea midline, Supple Respiratory/Chest: positive: Lungs Clear, Normal Breath Sounds Cardiovascular: positive: Regular Rhythm, Regular Rate, S1, S2 Gastrointestinal/Abdominal: positive: Normal Bowel Sounds, Soft Extremity: positive: Normal Capillary Refill, Normal Inspection Integumentary: positive: Normal Color, Dry, Warm Neurologic: positive: cover stripper II-XII NML intact, Fully Oriented, Alert, Other (pt is anxious and she is requesting anxiety meds.) Medical Decision Making - Medical Decision Making 02/07/17 00:22 Patient Name: Yuliana Morrison Date: 1975 Address: [address] [place] [address] Sex: Female Rx Written Rx Dispensed Drug Quantity Days Supply Prescriber Name 11/10/2016 02/04/2017 zolpidem tartrate 10 mg tablet 30 30 Marcio Monzon MD 01/19/2017 01/22/2017 alprazolam 1 mg tablet 90 30 Marcio Monzon MD 01/12/2017 01/14/2017 methadone hcl 10 mg tablet 120 30 Elzholz, Joce 01/12/2017 01/14/2017 hydromorphone 4 mg tablet 120 30 Elzholz, Joce 11/10/2016 01/07/2017 zolpidem tartrate 10 mg tablet 30 30 Marcio Monzon MD 12/22/2016 12/25/2016 alprazolam 1 mg tablet 90 30 Marcio Monzon MD 12/17/2016 12/17/2016 methadone hcl 10 mg tablet 120 30 Elzholz, Joce 12/17/2016 12/17/2016 hydromorphone 4 mg tablet 120 30 Elzholz, Joce 12/16/2016 12/16/2016 hydromorphone 4 mg tablet 4 1 Marcio Monzon MD 11/10/2016 12/10/2016 zolpidem tartrate 10 mg tablet 30 30 FadMarcio dias MD 11/23/2016 11/26/2016 alprazolam 1 mg tablet 90 30 FadMarcio dias MD 11/18/2016 11/18/2016 methadone hcl 10 mg tablet 120 30 Elzholz, Joce 11/18/2016 11/18/2016 hydromorphone 4 mg tablet 120 30 Elzholz, Joce 11/10/2016 11/10/2016 zolpidem tartrate 10 mg tablet 30 30 FadMarcio dias MD 10/27/2016 10/27/2016 alprazolam 1 mg tablet 90 30 [facility] 10/21/2016 10/21/2016 hydromorphone 4 mg tablet 120 30 Elzholz, Joce 10/21/2016 10/21/2016 methadone hcl 10 mg tablet 90 30 Elzholz, Joce 05/01/2016 10/03/2016 zolpidem tartrate 10 mg tablet 30 30 FadMarcio dias MD 10/01/2016 10/01/2016 methadone hcl 10 mg tablet 90 23 Elzholz, Joce 09/23/2016 09/27/2016 alprazolam 1 mg tablet 90 30 FadMarcio dias MD 09/22/2016 09/24/2016 hydromorphone 4 mg tablet 120 30 Elzholz, Joce 09/22/2016 09/24/2016 methadone hcl 10 mg tablet 30 30 Elzholz, Joce 05/01/2016 09/03/2016 zolpidem tartrate 10 mg tablet 30 30 FadMarcio dias MD 08/28/2016 08/28/2016 hydromorphone 4 mg tablet 120 30 Elzholz, Joce 08/28/2016 08/28/2016 methadone hcl 10 mg tablet 120 30 Elzholz, Joce 08/24/2016 08/28/2016 alprazolam 1 mg tablet 90 30 Marcio Monzon MD 08/25/2016 08/26/2016 hydromorphone 4 mg tablet 18 3 FadMarcio dias MD 05/01/2016 08/07/2016 zolpidem tartrate 10 mg tablet 30 30 FadMarcio dias MD 07/28/2016 07/30/2016 methadone hcl 10 mg tablet 120 30 FadMarcio dias MD 07/28/2016 07/30/2016 hydromorphone 4 mg tablet 120 30 FaderMarcio MD 07/28/2016 07/29/2016 alprazolam 1 mg tablet 90 30 Fader, Marcio HUBER 07/01/2016 07/02/2016 methadone hcl 10 mg tablet 120 30 FaderMarcio MD 05/01/2016 07/02/2016 zolpidem tartrate 10 mg tablet 30 30 FaderMarcio MD 07/01/2016 07/02/2016 alprazolam 1 mg tablet 90 30 FaderMarcio MD 07/01/2016 07/01/2016 hydromorphone 4 mg tablet 120 30 NeryMonica garsia D[employer]ATOR-[employer] 06/04/2016 06/05/2016 methadone hcl 10 mg tablet 120 30 GarciaAddy MD 06/05/2016 06/05/2016 alprazolam 1 mg tablet 90 30 FaderMarcio MD 06/04/2016 06/04/2016 hydromorphone 4 mg tablet 120 30 GarciaAddy MD 05/01/2016 06/04/2016 zolpidem tartrate 10 mg tablet 30 30 FaderMarcio MD 05/07/2016 05/07/2016 hydromorphone 4 mg tablet 120 30 GarciaAddy MD 04/03/2016 05/07/2016 carisoprodol 350 mg tablet 90 30 FaderMarcio MD 05/01/2016 05/07/2016 alprazolam 1 mg tablet 90 30 FaderMarcio MD 05/01/2016 05/04/2016 zolpidem tartrate 10 mg tablet 30 30 FaderMarcio MD 04/09/2016 04/09/2016 methadone hcl 10 mg tablet 120 30 GarciaAddy MD 04/09/2016 04/09/2016 hydromorphone 4 mg tablet 120 30 GarciaAddy MD 04/03/2016 04/07/2016 alprazolam 1 mg tablet 90 30 FaderMarcio MD 11/08/2015 04/05/2016 zolpidem tartrate 10 mg tablet 30 30 FaderMarcio MD 04/03/2016 04/03/2016 carisoprodol 350 mg tablet 90 30 FaderMarcio MD 03/09/2016 03/13/2016 hydromorphone 4 mg tablet 120 30 GarciaMoeAddy Jignesh MD 03/09/2016 03/13/2016 methadone hcl 10 mg tablet 120 30 Addy Garcia MD 03/09/2016 03/09/2016 hydromorphone 4 mg tablet 20 5 Addy Garcia MD 03/03/2016 03/08/2016 alprazolam 1 mg tablet 90 30 Marcio Monzon MD 11/08/2015 03/07/2016 zolpidem tartrate 10 mg tablet 30 30 Marcio Monzon MD 03/03/2016 03/03/2016 carisoprodol 350 mg tablet 90 30 Marcio Monzon MD 02/13/2016 02/13/2016 methadone hcl 10 mg tablet 120 30 GarciaAddy MD 02/13/2016 02/13/2016 hydromorphone 4 mg tablet 120 30 GarciaAddy MD 02/07/17 01:43 I made it clear to patient that I would give her no narcotics. SHe reminds me that she has meds at home and that she is not here for narcotics, rather for back spasms. I treated with tylenol and robaxin and she can go home with the same. Follow with pain management. Pr needs opioid detox *DC/Admit/Observation/Transfer Diagnosis at time of Disposition: Chronic pain, Anxiety and depression, Opiate addiction - Discharge Dispostion Disposition: HOME Condition at time of disposition: Stable - Referrals Referrals: Marcio Monzon MD [Primary Care Provider] - - Patient Instructions Printed Discharge Instructions: Back Pain (Alternative Therapy)
[2017-02-07] MEDS ORDERED: METHOCARBAMOL 500 MG TABLET PO ONE (00:33)
[2017-02-07] MEDS ORDERED: ACETAMINOPHEN 500 MG TABLET (FP) PO ONE (00:37)
[2017-02-07] MEDS ORDERED: METHOCARBAMOL 500 MG TABLET ONE (00:40)
[2017-02-07] MEDS ORDERED: ACETAMINOPHEN 325 MG TABLET (FP) ONE (00:42)
[2017-02-07] MEDS ORDERED: LORazepam 1 MG TABLET PO ONE (00:47)
[2017-02-07] MEDS ORDERED: LORazepam 0.5 MG TABLET ONE (00:53)
== END 2017-02-07 01:46 | disposition home or self-care (01) ==
LOC: FER 00:05
DX: F11.20 Opioid dependence, uncomplicated (principal); F41.8 Other specified anxiety disorders; G89.29 Other chronic pain; J45.909 Unspecified asthma, uncomplicated; K21.9 Gastro-esophageal reflux disease without esophagitis
CPT/HCPCS: 99281-25

== ENCOUNTER 2017-09-22 19:33 | Emergency (ER) | payer OTHER ==
[2017-09-22 19:38] VITALS: BP 127/100; PULSE 100; TEMP 98.5; BMI 36.9
--- NOTE | 2017-09-22 21:13 | PDOC ---
History of Present Illness - General Chief Complaint: Psychiatric Stated Complaint: ANXIOUS Time Seen by Provider: 09/22/17 19:50 - History of Present Illness Initial Comments: This 41-year-old woman with long history of chronic back pain secondary to lumbosacral degenerative herniated disc disease and cervical disc disease, as well as long-standing anxiety presents with upper back muscle spasms and panic attack. Patient describes attempting to pick her father up when he fell at home earlier today. She began to have pain in the upper back after this; she states she also became anxious and had a panic attack. Patient normally has baclofen 10 mg 3 times a day as needed for muscle spasms but has run out of her medication. She is due for refill of the baclofen in 4 days. Although she has taken her alprazolam dose today, she continues to feel anxious after this incident. Patient denies lower back pain/lower extremity weakness or other symptoms Past History - Past Medical History Allergies/Adverse Reactions: Allergies Allergy/AdvReac Type Severity Reaction Status Date / Time morphine Allergy Severe Hives Verified 12/15/16 22:35 aspirin Allergy Unknown Hives Verified 12/15/16 22:35 ketorolac tromethamine Allergy Unknown Difficulty Verified 12/15/16 22:35 [From Toradol] Breathing NSAIDS (Non-Steroidal Allergy Hives Verified 12/15/16 22:35 Anti-Inflamma haloperidol [From Haldol] AdvReac Intermediate Verified 12/15/16 22:35 haloperidol lactate AdvReac Intermediate Verified 12/15/16 22:35 [From Haldol] STRAWBERRIES Allergy Mild Hives Uncoded 06/04/16 16:08 aspirin Allergy Unknown Uncoded 01/08/12 16:42 ketorolac tromethamine Allergy Unknown Uncoded 01/08/12 16:42 Home Medications: Ambulatory Orders Acetaminophen [Tylenol .Regular Strength -] 650 mg PO Q6H PRN #0 tablet Gabapentin [Neurontin] 300 mg PO TID 06/26/16 Hydromorphone HCl [Dilaudid] 4 mg PO Q4HWA 09/23/16 Alprazolam [Xanax] 1 mg PO TID 02/07/17 Baclofen 10 mg PO TID 02/07/17 Methadone [Dolophine -] 20 mg PO Q12H 02/07/17 Methocarbamol [Robaxin -] 500 mg PO BID #60 tablet 02/07/17 Zolpidem Tartrate [Ambien] 10 mg PO HS 02/07/17 Baclofen 10 mg PO TID #12 tablet 09/22/17 Anemia: No Asthma: Yes Cancer: No Cardiac Disorders: No CVA: No COPD: No CHF: No Dementia: No Diabetes: No GI Disorders: Yes (GERD) Disorders: No HTN: No Hypercholesterolemia: No Liver Disease: No Psychiatric Problems: Yes (ANXIETY, DEPRESSION) Seizures: No Thyroid Disease: No - Surgical History Abdominal Surgery: No Appendectomy: No Cardiac Surgery: No Cholecystectomy: No Lung Surgery: Yes (biopsy, negative pathology) Neurologic Surgery: No Orthopedic Surgery: Yes (spinal surgery x 9) - Immunization History Td Vaccination: Yes Immunization Up to Date: Yes - Suicide/Smoking/Psychosocial Hx Smoking Status: No Smoking History: Never smoked Have you smoked in the past 12 months: No Number of Cigarettes Smoked Daily: 0 If you are a former smoker, when did you quit?: > 10 YEARS Information on smoking cessation initiated: No Hx Alcohol Use: No Drug/Substance Use Hx: No Substance Use Type: None, Prescribed Hx Substance Use Treatment: No (benzodiazpene, narcotic) Review of Systems - Review of Systems Able to Perform ROS?: Yes Comments:: 12 point review of systems is negative except for what is noted in the history of present illness *Physical Exam - Vital Signs Last Vital Signs Temp Pulse Resp BP Pulse Ox 98.5 F 100 H 17 127/100 100 09/22/17 19:35 09/22/17 19:35 09/22/17 19:35 09/22/17 19:35 09/22/17 19:35 - Physical Exam Comments: GENERAL: Adult female, appearing anxious and tearful ; morbidly obese HEAD: Normal with no signs of trauma. EYES: PERRLA, EOMI, sclera anicteric, conjunctiva clear. ENT: Ears normal, nares patent, oropharynx clear without exudates. Moist mucous membranes. NECK: Normal range of motion, supple without lymphadenopathy, JVD, or masses. LUNGS: Breath sounds equal, clear to auscultation bilaterally. No wheezes, and no crackles. HEART:Regular rate and rhythm, normal S1 and S2 without murmur, rub or gallop. ABDOMEN:.normal bowel sounds No guarding,tenderness or rebound.No masses No distention. EXTREMITIES: Normal range of motion, no edema. No clubbing or cyanosis. No erythema, or tenderness. NEUROLOGICAL: Cranial nerves II through XII grossly intact. Normal speech. No focal neurological deficits. MUSCULOSKELETAL: Back non-tender to palpation, no CVA tenderness SKIN: Warm, Dry, normal turgor, no rashes or lesions noted. Medical Decision Making - Medical Decision Making This 41-year-old woman with a history of chronic pain secondary to cervical and lumbosacral spine disease presents with anxiety episode and muscle spasms after attempting to lift her father off the floor after he had fallen. Exam is generally unremarkable except for evidence of acute anxiety. Patient will be given 1 mg of alprazolam by mouth now for her acute anxiety episode. Prescription for baclofen 10 mg 3 times a day (#12) sent to her pharmacy to cover until her monthly prescription is refilled. Otherwise, she will continue her medications as prescribed and follow-up with her doctors as scheduled. *DC/Admit/Observation/Transfer Diagnosis at time of Disposition: Anxiety - Discharge Dispostion Disposition: HOME Condition at time of disposition: Stable - Prescriptions Prescriptions: Baclofen 10 mg PO TID #12 tablet - Referrals - Patient Instructions Additional Instructions: continue medications as prescribed followup with your doctors as scheduled return to ER if symptoms are persistently severe - Post Discharge Activity
[2017-09-22] MEDS ORDERED: ALPRAZolam 1 MG TABLET PO PRN (22:50)
[2017-09-22] MEDS ORDERED: ALPRAZolam 0.25 MG TABLET ONE (23:19)
== END 2017-09-22 23:16 | disposition home or self-care (01) ==
LOC: FER 19:33
DX: M51.37 Other intervertebral disc degeneration, lumbosacral region (principal); G89.29 Other chronic pain; F41.8 Other specified anxiety disorders; J45.909 Unspecified asthma, uncomplicated; K21.9 Gastro-esophageal reflux disease without esophagitis
CPT/HCPCS: 99282-25